=== PATIENT | male | born 1965 | race Caucasian/White ===

== ENCOUNTER 2019-04-24 10:38 | Inpatient (IN) | payer OTHER ==
[~2019-04-24] VITALS: Ht 167.6 cm; Wt 87.0 kg
[2019-04-24] VITALS (17 sets, daily range): BP systolic 105–142; BP diastolic 66–92; PULSE 64–82; RESP 11–27; Ht 167.6 cm; Wt 87.0 kg
[~2019-04-24 10:38] MED LIST: ASPI-1044 PO; ATOR20TA38 PO; ATOR40TA68 PO; ERGO500013 PO; LOSA100T15 PO; METO-335 PO; NO MEDS; TICA90TA PO
[2019-04-24] MEDS ORDERED: ASPIRIN 325 MG TAB PO ONE (12:30)
[2019-04-24] MEDS ORDERED: ATORVASTATIN 80 MG TAB PO ONE (12:30)
[2019-04-24] MEDS ORDERED: ACETAMINOPHEN 325 MG TAB PO PRN (14:00)
[2019-04-24] MEDS ORDERED: ONDANSETRON 4 MG INJ IV PRN ×2 (14:00→15:30)
[2019-04-24] MEDS ORDERED: SOD CHLORIDE 0.9% 1,000 ML IV SCH (16:09)
[2019-04-24] MEDS ORDERED: DIPHENHYDRAMINE 50 MG INJ IV PRN (16:30)
[2019-04-24] MEDS: BIVALIRUDIN 250MG /NS 50 ML 50 ML IVPB SCH ×3 (17:04→19:27)
[2019-04-24] MEDS ORDERED: MIDAZOLAM 1 MG/ML 2 ML INJ ONE (18:33)
[2019-04-24] MEDS ORDERED: HEPARIN 1000 UNITS/ML 10 ML INJ ONE (18:33)
[2019-04-24] MEDS ORDERED: IODIXANOL LOCM 100 ML BTL ONE (18:33)
[2019-04-24] MEDS ORDERED: LIDOCAINE 1% (MDV) 20 ML INJ ONE (18:33)
[2019-04-24] MEDS ORDERED: FENTAnyl 50 MCG/ML VIAL ONE (18:33)
[2019-04-24] MEDS ORDERED: METHYLPREDNISOLONE 125 MG INJ ONE (18:34)
[2019-04-24] MEDS ORDERED: DIPHENHYDRAMINE 50 MG INJ ONE (18:34)
[2019-04-24] MEDS ORDERED: BIVALIRUDIN 250MG /NS 50 ML 50 ML IVPB ONE ×2 (18:34)
[2019-04-24] MEDS ORDERED: IOHEXOL 350MG/ML 50 ML BTL ONE (18:34)
[2019-04-24] MEDS ORDERED: TICAGRELOR 90 MG TABLET ONE (18:34)
[2019-04-24] MEDS ORDERED: VERAPAMIL 5 MG INJ ONE ×2 (18:34)
[2019-04-24] MEDS ORDERED: SOD CHLORIDE 0.9% 500 ML ONE (18:34)
[2019-04-24] MEDS ORDERED: NITROGLYCERIN (IC) 100 MCG/ML INJ ONE (18:34)
[2019-04-24] MEDS ORDERED: ATORVASTATIN 20 MG TAB PO SCH (21:00)
[2019-04-24] MEDS: predniSONE 20 MG TAB PO SCH (21:19)
[2019-04-24] MEDS: DOCUSATE SODIUM 100 MG CAP PO SCH (22:33)
[2019-04-24] MEDS: TICAGRELOR 90 MG TABLET PO SCH (23:03)
[2019-04-25] VITALS (31 sets, daily range): BP systolic 89–148; BP diastolic 52–100; PULSE 58–93; RESP 10–25
[2019-04-25] MEDS: predniSONE 20 MG TAB PO SCH ×2 (00:58→06:48)
[2019-04-25] MEDS: DOCUSATE SODIUM 100 MG CAP PO SCH ×2 (08:41→21:06)
[2019-04-25] MEDS: LOSARTAN 50 MG TAB PO SCH (08:41)
[2019-04-25] MEDS: ASPIRIN (EC) 81 MG TAB PO SCH (08:43)
[2019-04-25] MEDS: TICAGRELOR 90 MG TABLET PO SCH ×2 (08:44→21:11)
[2019-04-25] MEDS ORDERED: ASPIRIN (EC) 81 MG TAB PO SCH (09:00)
[2019-04-25] MEDS ORDERED: DIPHENHYDRAMINE 25 MG CAP PO ONE (10:00)
[2019-04-25] MEDS: METOPROLOL (XL) 25 MG TAB PO SCH (15:02)
[2019-04-25] MEDS: FAMOTIDINE 20 MG INJ IV SCH ×2 (15:02→21:06)
[2019-04-25] MEDS ORDERED: ATORVASTATIN 40 MG TAB PO SCH (21:00)
[2019-04-26 00:36] VITALS: BP 114/63; PULSE 61; RESP 18
[2019-04-26 04:15] VITALS: BP 110/56; PULSE 64; RESP 18
[2019-04-26 07:34] VITALS: BP 130/87; PULSE 57; RESP 18
[2019-04-26] MEDS: ASPIRIN (EC) 81 MG TAB PO SCH (08:22)
[2019-04-26] MEDS: DOCUSATE SODIUM 100 MG CAP PO SCH (08:22)
[2019-04-26] MEDS: METOPROLOL (XL) 25 MG TAB PO SCH (08:25)
[2019-04-26] MEDS: FAMOTIDINE 20 MG INJ IV SCH (08:26)
[2019-04-26] MEDS: LOSARTAN 50 MG TAB PO SCH (08:26)
[2019-04-26] MEDS: TICAGRELOR 90 MG TABLET PO SCH (08:41)
[2019-04-26 11:49] VITALS: BP 156/81; PULSE 64; RESP 18
== END 2019-04-26 14:30 | disposition home or self-care (01) | DRG 247 ==
LOC: E/R 10:38 → CCL 14:25 → SDS 14:25 → CCL 14:42 → ICU 14:43 → 6WM 04-25 15:23
PROVIDERS: ADMIT Family Medicine; ATTEND Family Medicine
PROC: B211YZZ Fluoroscopy of Multiple Coronary Arteries using Other Contrast (ICD-10-PCS; 2019-04-24)
PROC: B215YZZ Fluoroscopy of Left Heart using Other Contrast (ICD-10-PCS; 2019-04-24)
PROC: 027034Z Dilation of Coronary Artery, One Artery with Drug-eluting Intraluminal Device, Percutaneous Approach (ICD-10-PCS; principal; 2019-04-24 15:30)
PROC: 4A023N7 Measurement of Cardiac Sampling and Pressure, Left Heart, Percutaneous Approach (ICD-10-PCS; 2019-04-24 15:30)
DX: I21.4 Non-ST elevation (NSTEMI) myocardial infarction (principal); M62.82 Rhabdomyolysis; I25.10 Atherosclerotic heart disease of native coronary artery without angina pectoris; I10 Essential (primary) hypertension; E78.5 Hyperlipidemia, unspecified; D72.829 Elevated white blood cell count, unspecified; L50.0 Allergic urticaria; Z87.891 Personal history of nicotine dependence; T50.8X5A Adverse effect of diagnostic agents, initial encounter; Y92.238 Other place in hospital as the place of occurrence of the external cause
CPT/HCPCS: 71045; 80048; 80053; 80307; 82550; 82553; 83036; 83735; 83880; 84100; 84443; 84484; 85025; 85610; 87081; 92928; 93005; 93306; 93458; C1725; C1874; C1887; J0583; J1200; J1644; J2250; J2930; J3010; J7040; J7512; Q9967